=== PATIENT | male | born 1975 | race Caucasian/White ===

== ENCOUNTER 2018-04-26 12:49 | Emergency (ER) | payer OTHER ==
[~2018-04-26] VITALS: Ht 177.8 cm; Wt 129.3 kg
[~2018-04-26 12:49] MED LIST: ARIP30; AZIT250 PO; BACI500TO BOTHEYES; Ciprodex Otic7.5 ML RIGHTEAR; FLUPHENAZINE IM; HYDACE10B PO; MUPI2TC TOP; OLAN10; Prilosec20 MG PO; VALA500 PO
[2018-04-26 13:24] LABS: BASOPHILS ABSOLUTE AUTO 0.11 K/mm3 (0.00-0.23); BASOPHILS PERCENT AUTO 1 % (0-2); EOSINOPHILS ABSOLUTE AUTO 0.19 K/mm3 (0.00-0.68); EOSINOPHILS PERCENT AUTO 1 % (0-6); Hematocrit 48.7 % (37.0-53.0); Hemoglobin 16.5 g/dL (13.5-17.5); IMMATURE GRAN ABSOLUTE AUTO 0.06 K/mm3 (0.00-0.10); IMMATURE GRAN PERCENT AUTO 0 % (0-1); LYMPHOCYTES ABSOLUTE AUTO 2.05 K/mm3 (0.84-5.20); LYMPHOCYTES PERCENT AUTO 13 % (21-46); MONOCYTES ABSOLUTE AUTO 1.46 K/mm3 (0.16-1.47); MONOCYTES PERCENT AUTO 10 % (4-13); Mean Corpuscular HGB 30.1 pg (26.0-34.0); Mean Corpuscular HGB Conc 33.9 g/dL (31.5-36.5); Mean Corpuscular Volume 89 fL (80-100); Mean Platelet Volume 10.8 fL (9.1-12.4); NEUTROPHILS ABSOLUTE AUTO 11.51 K/mm3 (1.96-9.15); NEUTROPHILS PERCENT AUTO 75 % (41-73); Platelet Count 271 K/mm3 (150-400); RDW Coefficient Variation 12.4 % (11.7-14.2); RDW Standard Deviation 40.8 fL (35.1-46.3); Red Blood Cell Count 5.49 M/mm3 (4.30-5.90); White Blood Cell Count 15.38 K/mm3 (4.00-11.30)
[2018-04-26 13:25] LABS: Source, Urine Clean Catch
[2018-04-26 13:30] LABS: Appearance, Urine Clear (Clear); Bilirubin, Urine Neg (Neg); Blood, Urine 4+ (Neg); Color, Urine Yellow (P-Yellow); Glucose Qualitative, Urine Neg (Neg); Ketones, Urine 1+ (Neg); Leukocyte Esterase, Urine 1+ (Neg); Nitrite, Urine Neg (Neg); Protein, Urine 2+ (Neg); Urobilinogen, Urine NORM (Normal)
[2018-04-26 13:39] LABS: Squamous Epithelial Cells Few /hpf (Few)
[2018-04-26 13:41] LABS: Bacteria Not Seen /hpf; Mucus Light ({null, 0-Heavy}); Red Blood Cells, Urine 0-2 /hpf (0-2); Yeast/Fungi Urine Rare /hpf
[2018-04-26 13:45] LABS: U Amphetamine Screen Not Detected; U Barbituate Screen Not Detected; U Benzodiazapine Screen Not Detected; U Buprenorphine Screen Not Detected; U Cannabinoids Screen DETECTED; U Cocaine Screen Not Detected; U Methadone Screen Not Detected; U Methamphetamine Screen Not Detected; U Opiates Screen Not Detected; U Oxycodone Screen Not Detected; U Phencyclidine Screen Not Detected; U Propoxyphene Screen Not Detected
[2018-04-26 13:47] LABS: Alanine Aminotransfer (ALT/SGP 51 U/L (12-78); Albumin, Blood 4.1 g/dL (3.4-5.0); Alk Phos 80 U/L (50-136); Anion Gap 6 mmol/L (6-16); Aspartate Aminotrans (AST/SGOT 46 U/L (12-37); Bilirubin, Total 0.7 mg/dL (0.1-1.0); Blood Urea Nitrogen 9 mg/dL (8-24); CO2, Blood 25 mmol/L (21-32); Calcium, Blood 8.3 mg/dL (8.5-10.1); Chloride, Blood 106 mmol/L (98-108); Creatinine, Blood 1.12 mg/dL (0.60-1.20); Ethanol (Alcohol), Blood, Med <3 mg/dL; Glomerular Filtration Rate >60 (60-); Glucose, Blood 87 mg/dL (70-99); Potassium, Blood 4.2 mmol/L (3.5-5.5); Salicylate 10.3 mg/dL (2.8-20.0); Sodium, Blood 137 mmol/L (136-145); Total Protein, Blood 8.1 g/dL (6.4-8.2)
[2018-04-26 14:01] LABS: Acetaminophen, Random <2.0 ug/mL (10.0-30.0)
[2018-04-26] MEDS ORDERED: THIO25 PO (14:29)
[2018-04-26] MEDS ORDERED: Benztropine Mesy1 MG (14:29)
[2018-04-26] MEDS ORDERED: INVEGA SUS117 MG/0.7 (14:30)
== END 2018-04-26 16:40 | disposition left against medical advice (07) ==
LOC: ER 12:49
PROVIDERS: Physician Assistant
DX: F20.9 Schizophrenia, unspecified (principal); R44.0 Auditory hallucinations; Z91.19 Patient's noncompliance with other medical treatment and regimen; Z88.8 Allergy status to other drugs, medicaments and biological substances; Z79.899 Other long term (current) drug therapy; F17.200 Nicotine dependence, unspecified, uncomplicated
CPT/HCPCS: 36415; 80053; 81001; 84443; 85025; 87086; 99284; G0480

== ENCOUNTER 2018-10-09 12:39 | Emergency (ER) | payer OTHER ==
[~2018-10-09] VITALS: Ht 180.3 cm; Wt 117.9 kg
[~2018-10-09 12:39] MED LIST changes: +Benztropine Mesy1 MG; +INVEGA SUS117 MG/0.7; +THIO25 PO
[2018-10-09 13:25] LABS: BASOPHILS ABSOLUTE AUTO 0.08 K/mm3 (0.00-0.23); BASOPHILS PERCENT AUTO 1 % (0-2); EOSINOPHILS ABSOLUTE AUTO 0.11 K/mm3 (0.00-0.68); EOSINOPHILS PERCENT AUTO 1 % (0-6); Hematocrit 48.2 % (37.0-53.0); Hemoglobin 15.8 g/dL (13.5-17.5); IMMATURE GRAN ABSOLUTE AUTO 0.03 K/mm3 (0.00-0.10); IMMATURE GRAN PERCENT AUTO 0 % (0-1); LYMPHOCYTES PERCENT AUTO 10 % (21-46); MONOCYTES PERCENT AUTO 7 % (4-13); Mean Corpuscular HGB 30.1 pg (26.0-34.0); Mean Corpuscular HGB Conc 32.8 g/dL (31.5-36.5); Mean Corpuscular Volume 92 fL (80-100); Mean Platelet Volume 11.2 fL (9.1-12.4); NEUTROPHILS PERCENT AUTO 82 % (41-73); Platelet Count 216 K/mm3 (150-400); RDW Coefficient Variation 13.4 % (11.7-14.2); RDW Standard Deviation 46.3 fL (35.1-46.3); Red Blood Cell Count 5.25 M/mm3 (4.30-5.90); White Blood Cell Count 16.72 K/mm3 (4.00-11.30)
[2018-10-09 13:43] LABS: Alanine Aminotransfer (ALT/SGP 26 U/L (12-78); Albumin, Blood 3.8 g/dL (3.4-5.0); Alk Phos 87 U/L (50-136); Anion Gap 7 mmol/L (6-16); Aspartate Aminotrans (AST/SGOT 24 U/L (12-37); Bilirubin, Total 0.6 mg/dL (0.1-1.0); Blood Urea Nitrogen 11 mg/dL (8-24); CO2, Blood 21 mmol/L (21-32); Calcium, Blood 8.6 mg/dL (8.5-10.1); Chloride, Blood 112 mmol/L (98-108); Creatinine, Blood 0.79 mg/dL (0.60-1.20); Ethanol (Alcohol), Blood, Med 7 mg/dL; Globulin, Blood 3.9 g/dL (2.2-4.0); Glomerular Filtration Rate >60 (60-); Glucose, Blood 106 mg/dL (70-99); Potassium, Blood 3.4 mmol/L (3.5-5.5); Salicylate 20.2 mg/dL (2.8-20.0); Sodium, Blood 140 mmol/L (136-145); Total Protein, Blood 7.7 g/dL (6.4-8.2)
[2018-10-09 13:53] LABS: Acetaminophen, Random <2.0 ug/mL (10.0-30.0)
== END 2018-10-09 14:12 | disposition left against medical advice (07) ==
LOC: ER 12:39
PROVIDERS: Physician Assistant
DX: F22 Delusional disorders (principal)
CPT/HCPCS: 36415; 80053; 84443; 85025; 99281; G0480

== ENCOUNTER 2018-11-30 12:09 | Emergency (ER) | payer OTHER ==
[~2018-11-30] VITALS: Ht 180.3 cm; Wt 90.7 kg
== END 2018-11-30 13:46 | disposition left against medical advice (07) ==
LOC: ER 12:09
DX: Z53.21 Procedure and treatment not carried out due to patient leaving prior to being seen by health care provider (principal)

== ENCOUNTER 2018-12-04 04:28 | Emergency (ER) | payer OTHER ==
[~2018-12-04] VITALS: Ht 180.3 cm; Wt 113.4 kg
[2018-12-04] MEDS ORDERED: [UNRECOGNIZED DRUG - OTHER] PO (04:52)
[2018-12-04] MEDS ORDERED: RISPERDAL IM (04:53)
== END 2018-12-04 08:01 | disposition home or self-care (01) ==
LOC: ER 04:28
DX: F20.9 Schizophrenia, unspecified (principal); F17.210 Nicotine dependence, cigarettes, uncomplicated
CPT/HCPCS: 99284

== ENCOUNTER 2019-01-24 16:56 | Emergency (ER) | payer OTHER ==
[~2019-01-24] VITALS: Ht 180.3 cm; Wt 117.9 kg
[~2019-01-24 16:56] MED LIST changes: +RISPERDAL IM; +[UNRECOGNIZED DRUG - OTHER] PO
[2019-01-24 18:43] LABS: BASOPHILS ABSOLUTE AUTO 0.08 K/mm3 (0.00-0.23); BASOPHILS PERCENT AUTO 1 % (0-2); EOSINOPHILS PERCENT AUTO 2 % (0-6); Hematocrit 47.7 % (37.0-53.0); Hemoglobin 15.7 g/dL (13.5-17.5); IMMATURE GRAN ABSOLUTE AUTO 0.03 K/mm3 (0.00-0.10); IMMATURE GRAN PERCENT AUTO 0 % (0-1); LYMPHOCYTES ABSOLUTE AUTO 1.53 K/mm3 (0.84-5.20); LYMPHOCYTES PERCENT AUTO 13 % (21-46); MONOCYTES ABSOLUTE AUTO 0.72 K/mm3 (0.16-1.47); MONOCYTES PERCENT AUTO 6 % (4-13); Mean Corpuscular HGB 30.1 pg (26.0-34.0); Mean Corpuscular HGB Conc 32.9 g/dL (31.5-36.5); Mean Corpuscular Volume 91 fL (80-100); Mean Platelet Volume 11.3 fL (9.1-12.4); NEUTROPHILS ABSOLUTE AUTO 9.08 K/mm3 (1.96-9.15); NEUTROPHILS PERCENT AUTO 78 % (41-73); Platelet Count 241 K/mm3 (150-400); RDW Coefficient Variation 12.4 % (11.7-14.2); RDW Standard Deviation 42.3 fL (35.1-46.3); Red Blood Cell Count 5.22 M/mm3 (4.30-5.90); White Blood Cell Count 11.64 K/mm3 (4.00-11.30)
[2019-01-24 19:06] LABS: Alanine Aminotransfer (ALT/SGP 40 U/L (12-78); Albumin, Blood 3.6 g/dL (3.4-5.0); Alk Phos 91 U/L (50-136); Anion Gap 3 mmol/L (6-16); Aspartate Aminotrans (AST/SGOT 26 U/L (12-37); Bilirubin, Total 0.3 mg/dL (0.1-1.0); Blood Urea Nitrogen 9 mg/dL (8-24); Bun/Creatinine Ratio 10.2 (12.0-20.0); CO2, Blood 27 mmol/L (21-32); Calcium, Blood 8.7 mg/dL (8.5-10.1); Chloride, Blood 107 mmol/L (98-108); Creatinine, Blood 0.88 mg/dL (0.60-1.20); Globulin, Blood 3.5 g/dL (2.2-4.0); Glomerular Filtration Rate >60 (60-); Glucose, Blood 122 mg/dL (70-99); Potassium, Blood 3.9 mmol/L (3.5-5.5); Sodium, Blood 137 mmol/L (136-145); Total Protein, Blood 7.1 g/dL (6.4-8.2)
[2019-01-24 19:09] LABS: Source, Urine Clean Catch
[2019-01-24] MEDS ORDERED: Risperdal50 MG/2 ML IM (19:10)
[2019-01-24] MEDS ORDERED: LORA1 PO (19:11)
[2019-01-24 19:13] LABS: Appearance, Urine Clear (Clear); Bilirubin, Urine Neg (Neg); Blood, Urine Neg (Neg); Color, Urine Amber (P-Yellow); Glucose Qualitative, Urine Neg (Neg); Ketones, Urine 1+ (Neg); Leukocyte Esterase, Urine 1+ (Neg); Nitrite, Urine Neg (Neg); Protein, Urine 1+ (Neg); Specific Gravity, Urine 1.025 (1.003-1.022); Urobilinogen, Urine NORM (Normal)
[2019-01-24 19:19] LABS: Bacteria Few /hpf; Calcium Oxalate Crystals Few /hpf; Mucus Light (0-Heavy); Red Blood Cells, Urine 0-2 /hpf (0-2); Squamous Epithelial Cells Rare /hpf (Few)
[2019-01-24] MEDS ORDERED: Vibramycin100 MG PO (20:38)
== END 2019-01-24 20:51 | disposition home or self-care (01) ==
LOC: ER 16:56
PROVIDERS: Physician Assistant
DX: N45.1 Epididymitis (principal); F17.210 Nicotine dependence, cigarettes, uncomplicated; Z79.899 Other long term (current) drug therapy
CPT/HCPCS: 36415; 76870; 80053; 81001; 85025; 87086; 99284-25

== ENCOUNTER 2019-06-10 14:33 | Emergency (ER) | payer OTHER ==
[~2019-06-10] VITALS: Ht 180.3 cm; Wt 124.7 kg
[~2019-06-10 14:33] MED LIST changes: +LORA1 PO; +Risperdal50 MG/2 ML IM; +Vibramycin100 MG PO
== END 2019-06-10 16:15 | disposition home or self-care (01) ==
LOC: ER 14:33
DX: F20.0 Paranoid schizophrenia (principal); K21.9 Gastro-esophageal reflux disease without esophagitis; F17.210 Nicotine dependence, cigarettes, uncomplicated
CPT/HCPCS: 96372; 99284; J1200; J1630; J2060

== ENCOUNTER 2019-06-17 20:41 | Emergency (ER) | payer OTHER ==
[~2019-06-17] VITALS: Ht 180.3 cm; Wt 102.1 kg
== END 2019-06-17 23:15 | disposition home or self-care (01) ==
LOC: ER 20:41
DX: F15.10 Other stimulant abuse, uncomplicated (principal); R45.1 Restlessness and agitation
CPT/HCPCS: 99284

== ENCOUNTER 2019-07-13 07:48 | Emergency (ER) | payer OTHER ==
[~2019-07-13] VITALS: Ht 180.3 cm; Wt 90.7 kg
== END 2019-07-13 08:36 | disposition home or self-care (01) ==
LOC: ER 07:48
DX: F29 Unspecified psychosis not due to a substance or known physiological condition (principal); K21.9 Gastro-esophageal reflux disease without esophagitis; E66.9 Obesity, unspecified; Z91.14 Patient's other noncompliance with medication regimen; Z79.899 Other long term (current) drug therapy; Z68.27 Body mass index [BMI] 27.0-27.9, adult
CPT/HCPCS: 99284

== ENCOUNTER 2019-07-21 23:47 | Emergency (ER) | payer OTHER ==
[~2019-07-21] VITALS: Ht 180.3 cm; Wt 115.7 kg
[2019-07-22] MEDS ORDERED: BUSPIRONE (00:01)
== END 2019-07-22 01:40 | disposition home or self-care (01) ==
LOC: ER 23:47
DX: M54.5 Low back pain (principal); F20.9 Schizophrenia, unspecified; F17.210 Nicotine dependence, cigarettes, uncomplicated
CPT/HCPCS: 96372; 99283; J1885; J7512

== ENCOUNTER 2019-10-15 17:44 | Emergency (ER) | payer OTHER ==
[~2019-10-15 17:44] MED LIST changes: +BUSPIRONE; +Keflex500 MG PO
== END 2019-10-15 19:11 | disposition left against medical advice (07) ==
LOC: ER 17:44
DX: Z53.21 Procedure and treatment not carried out due to patient leaving prior to being seen by health care provider (principal)

== ENCOUNTER 2020-01-10 13:40 | Inpatient (IN) | payer OTHER ==
[~2020-01-10] VITALS: Ht 185.4 cm; Wt 111.9 kg
[2020-01-10 14:34] LABS: BASOPHILS ABSOLUTE AUTO 0.08 K/mm3 (0.00-0.23); BASOPHILS PERCENT AUTO 1 % (0-2); EOSINOPHILS ABSOLUTE AUTO 0.31 K/mm3 (0.00-0.68); EOSINOPHILS PERCENT AUTO 4 % (0-6); Hemoglobin 16.3 g/dL (13.5-17.5); IMMATURE GRAN ABSOLUTE AUTO 0.01 K/mm3 (0.00-0.10); IMMATURE GRAN PERCENT AUTO 0 % (0-1); LYMPHOCYTES ABSOLUTE AUTO 1.72 K/mm3 (0.84-5.20); LYMPHOCYTES PERCENT AUTO 22 % (21-46); MONOCYTES PERCENT AUTO 6 % (4-13); Mean Corpuscular HGB Conc 32.6 g/dL (31.5-36.5); Mean Corpuscular Volume 92 fL (80-100); Mean Platelet Volume 11.5 fL (9.1-12.4); NEUTROPHILS ABSOLUTE AUTO 5.39 K/mm3 (1.96-9.15); NEUTROPHILS PERCENT AUTO 67 % (41-73); Platelet Count 224 K/mm3 (150-400); RDW Coefficient Variation 12.5 % (11.7-14.2); RDW Standard Deviation 41.8 fL (35.1-46.3); Red Blood Cell Count 5.44 M/mm3 (4.30-5.90); White Blood Cell Count 8.01 K/mm3 (4.00-11.30)
[2020-01-10 14:48] LABS: Source, Urine Catheter
[2020-01-10 14:50] LABS: Alanine Aminotransfer (ALT/SGP 39 U/L (12-78); Albumin, Blood 3.3 g/dL (3.4-5.0); Alk Phos 70 U/L (50-136); Anion Gap 5 mmol/L (6-16); Aspartate Aminotrans (AST/SGOT 26 U/L (12-37); Bilirubin, Total 0.3 mg/dL (0.1-1.0); Blood Urea Nitrogen 8 mg/dL (8-24); Bun/Creatinine Ratio 9.5 (12.0-20.0); CO2, Blood 26 mmol/L (21-32); Calcium, Blood 8.5 mg/dL (8.5-10.1); Chloride, Blood 109 mmol/L (98-108); Creatinine, Blood 0.84 mg/dL (0.60-1.20); Ethanol (Alcohol), Blood, Med <3 mg/dL; Globulin, Blood 3.3 g/dL (2.2-4.0); Glomerular Filtration Rate >60 (60-); Glucose, Blood 126 mg/dL (70-99); Salicylate 5.1 mg/dL (2.8-20.0); Sodium, Blood 140 mmol/L (136-145); Total Protein, Blood 6.6 g/dL (6.4-8.2)
[2020-01-10 14:53] LABS: Bilirubin, Urine Neg (Neg); Blood, Urine Neg (Neg); Glucose Qualitative, Urine Neg (Neg); Ketones, Urine Neg (Neg); Leukocyte Esterase, Urine Neg (Neg); Nitrite, Urine Neg (Neg); Protein, Urine Neg (Neg); Urobilinogen, Urine NORM (Normal)
[2020-01-10 14:54] LABS: Acetaminophen, Random <2.0 ug/mL (10.0-30.0)
[2020-01-10 15:00] LABS: Appearance, Urine Clear (Clear); Color, Urine Yellow (P-Yellow)
[2020-01-10 15:04] LABS: U Amphetamine Screen Not Detected; U Barbituate Screen Not Detected; U Benzodiazapine Screen Not Detected; U Buprenorphine Screen Not Detected; U Cannabinoids Screen DETECTED; U Cocaine Screen Not Detected; U Methadone Screen Not Detected; U Methamphetamine Screen Not Detected; U Opiates Screen Not Detected; U Oxycodone Screen Not Detected; U Phencyclidine Screen Not Detected; U Propoxyphene Screen Not Detected
--- NOTE | 2020-01-10 17:55 | NUR ---
PT ARRIVED TO THE UNIT VIA STRETCHER FROM [facility], PT IS HERE DUE TO KLONOPIN OVERDOSE AND SI. PT IS ON 2MD HOLD. PT IS MINIMALLY RESPONSIVE, WOULD ONLY RESPONDS TO PRESSURE TOUCH. HAS WOKEN UP ONCE TO USE THE BATHROOM PT WAS ASSISTED BACK IN BED PT WAS NOT STEADY TO STAND OFFERED URINAL, PT VOIDED 60MLS OF URINE. VITALS HRR SINUS 80'S, BP SYSTOLIC 120, SATS ABOVE 95% ON RA, AFEBRILE. PT REMAINED ASLEEP LR BOLUS X1 BAG IS NOW RUNNING. 1:1 SITTER AT BEDSIDE. BED ALARM ON. WILL MONITOR PT
--- NOTE | 2020-01-10 19:05 | NUR ---
PT REMAINED MINIMALLY RESPONSIVE, PT UNABLE TO PARTICIPATE WITH SI ASSESSMENT PT GARBLES WHEN RESPONDING. OPENS BOTH EYES BUT FALLS ASLEEP PRETTY QUICK. PATIENT SITTER IN THE ROOM. LR RUNNING AT 200MLS/HR. NO OTHER ISSUES AT THIS TIME, REPORT GIVEN TO ONCOMING SHIFT.
--- NOTE | 2020-01-10 19:43 | NUR ---
SAFETY PLAN NOTIFIED CHRIS ENG OF NEED FOR SAFETY PLAN, LEFT VOICEMAIL MESSAGE WITH DETAILS.
[2020-01-10] MEDS ORDERED: [UNRECOGNIZED DRUG - OTHER] PO (22:32)
[2020-01-10] MEDS ORDERED: RISPERDAL50 MG/2 ML IM (22:33)
--- NOTE | 2020-01-11 03:35 | NUR ---
UPDATE PT WAKES ONLY TO ANSWER QUESTION THEN IMMEDIATLEY GOES BACK TO SLEEP. HE IS ORIENTED TO PERSON AND PLACE. DOES NOT KNOW OWN LIMITATIONS AND HAS REPEATEDLY STOOD UP WITH A VERY UNSTEADY GAIT TO USE THE URINAL. HE IS A 1 PERSON ASSIST. PT IS COOPERATIVE AT TIMES BUT NOT OTHERS. VSS, BED LOW AND LOCKED, CALL LIGHT WITHIN REACH, NO OTHER ISSUES NOTED THIS SHIFT.
[2020-01-11 04:22] LABS: Alanine Aminotransfer (ALT/SGP 32 U/L (12-78); Albumin, Blood 2.8 g/dL (3.4-5.0); Alk Phos 63 U/L (50-136); Anion Gap 3 mmol/L (6-16); Aspartate Aminotrans (AST/SGOT 25 U/L (12-37); Bilirubin, Total 0.4 mg/dL (0.1-1.0); Blood Urea Nitrogen 6 mg/dL (8-24); Bun/Creatinine Ratio 8.9 (12.0-20.0); CO2, Blood 27 mmol/L (21-32); Calcium, Blood 8.4 mg/dL (8.5-10.1); Chloride, Blood 113 mmol/L (98-108); Creatinine, Blood 0.68 mg/dL (0.60-1.20); Globulin, Blood 2.9 g/dL (2.2-4.0); Glomerular Filtration Rate >60 (60-); Glucose, Blood 77 mg/dL (70-99); Potassium, Blood 3.9 mmol/L (3.5-5.5); Sodium, Blood 143 mmol/L (136-145); Total Protein, Blood 5.7 g/dL (6.4-8.2)
--- NOTE | 2020-01-11 05:44 | NUR ---
SUMMARY PT CONTINUES TO GET OUT OF BED TO USE URINAL AND DOES NOT USE CALL LIGHT. BED ALARM IS ON AND HE IS A SBA BECAUSE OF HIS UNSTEADY GATE. OTHERWISE HE SLEEPS AND IS DIFFICULT TO AROUSE AND FALLS ASLEEP DURING CONVERSATION. CALL LIGHT IS IN REACH, BED IN LOW POSITION.
--- NOTE | 2020-01-11 07:30 | NUR ---
ASSUMED PATIENT CARE. PATIENT RESTING COMFORTABLY IN BED, CALL LIGHT WITHIN REACH. NO SIGNS OF ACUTE DISTRESS, WCTM.
--- NOTE | 2020-01-11 12:11 | NUR ---
REPORT GIVEN TO ANGEL LUIS SILVA ON MEDICAL.
[2020-01-11 12:27] LABS: U Amphetamine Screen Not Detected; U Barbituate Screen Not Detected; U Benzodiazapine Screen Not Detected; U Buprenorphine Screen Not Detected; U Cannabinoids Screen DETECTED; U Cocaine Screen Not Detected; U Methadone Screen Not Detected; U Methamphetamine Screen Not Detected; U Opiates Screen Not Detected; U Oxycodone Screen Not Detected; U Phencyclidine Screen Not Detected; U Propoxyphene Screen Not Detected
--- NOTE | 2020-01-11 12:30 | NUR ---
TRANSFERRED TO MEDICAL FLOOR PT TRANSFERRED FROM PCU TO MEDICAL SCU VIA WC. PT AxOx1-2. INTERMITTENT INCOHERENT MUMBLING. FOLLOWS COMMANDS. VITALS REVIEWED. SI REASSESSED. VITALS REVIEWED. RIPPED OUT IV UPON TRANSFER. WILL CALL DR JIMENEZ ABOUT DC ORDER. PT DENIES PAIN. REQUESTING TO NAP NOW. MOTHER, JULIA CALLED FOR UPDATE APPROX 1330. ALL QUESTIONS ANSWERED AT THIS TIME. WILL CALL BACK TOMORROW TO FOLLOW UP.
--- NOTE | 2020-01-11 13:23 | NUR ---
Safety Plan interview attempted. Pt has slurred speech that is difficult to understand. He did state he took OD of pills. He would stroke his head with both hands, no eye contact. Pt appeared unable to engae in plan. Will attempt tomorrow. Sushma Reed M.Ed., [facility]
--- NOTE | 2020-01-11 17:41 | NUR ---
SHIFT SUMMARY PT AxOx3. MOSTLY COOPERATIVE WITH CARE TODAY. INTERMITTENT CONFUSION/IRRITABILITY. CAMERA ON IN ROOM. MOD SI PRECAUTIONS IN PLACE. DENIES ANY SI TODAY. TOOK NAP AFTER ARRIVING ON UNIT. WOKE UP WITH IMPROVED ORIENTATION AND STEADY GAIT. INDEPENDENT IN ROOM AT THIS TIME. DOES NOT USE CALL LIGHT APPROPRIATELY. GETS UP AND STANDS AT DOOR UNTIL SOMEONE CHECKS ON HIM. DR GREENEUFF IN TO SEE PT THIS AFTERNOON, ADDED KLONOPIN BID. DENIES PAIN. VITALS REVIWED. PT CURRENTLY RESTING IN BED AFTER EATING DINNER.
--- NOTE | 2020-01-11 19:40 | NUR ---
ASSUMED CARE. MICHAELA IS ALERT, BUT TENDS TO FALL BACK TO SLEEP BETWEEN QUESTIONS. DENIES ANY PAIN OR DISCOMFORT. DENIES ANY SUICIDAL THOUGHTS OR INTENSTIONS. KNOWS WHERE HE IS AT AND WHY BUT WAS OFF ON THE DAY. STATES HE JUST TIRED. DENIES ANY NEEDS OR COMPLAINTS. CALL LIGHT IN REACH. WILL CONTINUE TO MONITOR.
--- NOTE | 2020-01-12 05:26 | NUR ---
SHIFT SUMMARY: MICHAELA WOKE UP FOR SHORT PERIOD OF TIME TONIGHT, BUT HAS SLEPT. SUICIDE ASSESSMENT HAS BEEN NEGATIVE, HE HAS DENIED SUICIDAL THOUGHTS AND INTENSIONS. HE WAKES UP AND THEN GOES BACK TO SLEEP. VS HAVE BEEN STABLE. NO ACUTE CHANGES TO NOTE THIS SHIFT.
--- NOTE | 2020-01-12 12:17 | NUR ---
Safety interview attempted at 1130a today. Pt did not respond to questions. He did say hello, then covered his head with a sheet. RN informed of need for plan in case pt. would be discharged today. PCI report from [facility] report for involuntary hold not yet availbale. Checked with Crisis Unit and nothing faxed.
[2020-01-12] MEDS ORDERED: CLON.5 PO (12:33)
--- NOTE | 2020-01-12 12:48 | NUR ---
DISCHARGE INSTRUCTIONS DISCUSED WITH PATIENT. ALL QUESTIONS ANSWERED. RX FOR KLONOPIN CALLED INTO THE [facility]. NO IV TO REMOVE. PATIENT NEEDS TO COMPLETE A SAFETY PLAN BEFORE DISCHARGING HOME.
--- NOTE | 2020-01-12 13:18 | NUR ---
PATIENT DISCHARGED HOME AT 1319. TRANSPORT TOOK PATIENT OUT VIA WHEELCHAIR.
== END 2020-01-12 13:19 | disposition home or self-care (01) | DRG 917 ==
LOC: ER 13:40 → PCU 13:41 → MEDS 01-11 12:21
PROVIDERS: Emergency Medicine; Family Medicine; ADMIT Hospitalist
DX: T42.4X2A Poisoning by benzodiazepines, intentional self-harm, initial encounter (principal); G92 Toxic encephalopathy; K51.90 Ulcerative colitis, unspecified, without complications; F20.9 Schizophrenia, unspecified; E66.9 Obesity, unspecified; K21.9 Gastro-esophageal reflux disease without esophagitis; B19.20 Unspecified viral hepatitis C without hepatic coma; F17.210 Nicotine dependence, cigarettes, uncomplicated; F12.129 Cannabis abuse with intoxication, unspecified; Z68.32 Body mass index [BMI] 32.0-32.9, adult
CPT/HCPCS: 36415; 51702; 80053; 81003; 85025; 93005; 93010; 94762; 96360-59; 96361; 96372; 99285-25; G0378; G0480; J1650; J7030; J7120

== ENCOUNTER 2020-01-20 00:09 | Emergency (ER) | payer OTHER ==
[~2020-01-20] VITALS: Ht 180.3 cm; Wt 113.4 kg
[~2020-01-20 00:09] MED LIST changes: +CLON.5 PO; +RISPERDAL50 MG/2 ML IM
== END 2020-01-20 01:17 | disposition home or self-care (01) ==
LOC: ER 00:09
DX: F41.9 Anxiety disorder, unspecified (principal); F17.210 Nicotine dependence, cigarettes, uncomplicated; Z76.0 Encounter for issue of repeat prescription; Z79.899 Other long term (current) drug therapy; F20.9 Schizophrenia, unspecified
CPT/HCPCS: 99283

== ENCOUNTER 2020-02-11 04:36 | Emergency (ER) | payer OTHER ==
[~2020-02-11] VITALS: Ht 180.3 cm; Wt 113.4 kg
[2020-02-11] MEDS ORDERED: CEPH500 PO (04:57)
== END 2020-02-11 05:07 | disposition home or self-care (01) ==
LOC: ER 04:36
DX: T63.301A Toxic effect of unspecified spider venom, accidental (unintentional), initial encounter (principal); L53.0 Toxic erythema; R20.8 Other disturbances of skin sensation; F20.0 Paranoid schizophrenia; F17.210 Nicotine dependence, cigarettes, uncomplicated; Z79.899 Other long term (current) drug therapy
CPT/HCPCS: 99282; A9270-GY

== ENCOUNTER 2020-02-15 16:33 | Emergency (ER) | payer OTHER ==
[~2020-02-15] VITALS: Ht 180.3 cm; Wt 90.7 kg
[~2020-02-15 16:33] MED LIST changes: +CEPH500 PO
== END 2020-02-15 17:42 | disposition home or self-care (01) ==
LOC: ER 16:33
DX: F20.9 Schizophrenia, unspecified (principal); K21.9 Gastro-esophageal reflux disease without esophagitis; F17.210 Nicotine dependence, cigarettes, uncomplicated; Z79.899 Other long term (current) drug therapy
CPT/HCPCS: 36415; 96372; 99284

== ENCOUNTER 2020-02-16 19:25 | Emergency (ER) | payer OTHER ==
[~2020-02-16] VITALS: Ht 180.3 cm; Wt 114.3 kg
== END 2020-02-16 22:55 | disposition home or self-care (01) ==
LOC: ER 19:25
DX: F20.9 Schizophrenia, unspecified (principal); F17.210 Nicotine dependence, cigarettes, uncomplicated; Z76.0 Encounter for issue of repeat prescription; Z86.59 Personal history of other mental and behavioral disorders; Z79.899 Other long term (current) drug therapy
CPT/HCPCS: 99284

== ENCOUNTER 2020-06-12 10:22 | Emergency (ER) | payer OTHER ==
[~2020-06-12] VITALS: Ht 180.3 cm; Wt 111.1 kg
[2020-06-12] MEDS ORDERED: CEPH500 PO (10:50)
== END 2020-06-12 10:59 | disposition home or self-care (01) ==
LOC: ER 10:22
DX: L03.115 Cellulitis of right lower limb (principal); F17.210 Nicotine dependence, cigarettes, uncomplicated
CPT/HCPCS: 99283

== ENCOUNTER 2020-06-13 16:49 | Emergency (ER) | payer OTHER ==
[~2020-06-13] VITALS: Ht 180.3 cm; Wt 111.1 kg
== END 2020-06-13 18:00 | disposition home or self-care (01) ==
LOC: ER 16:49
DX: L03.116 Cellulitis of left lower limb (principal)
CPT/HCPCS: 99282

== ENCOUNTER 2020-10-29 16:11 | Emergency (ER) | payer OTHER | END 2020-10-29 17:33 | disposition home or self-care (01) | LOC: ER 16:11 | DX: S01.312A Laceration without foreign body of left ear, initial encounter (principal); F17.210 Nicotine dependence, cigarettes, uncomplicated; W45.8XXA Other foreign body or object entering through skin, initial encounter ==

== ENCOUNTER 2021-03-03 10:02 | Emergency (ER) | payer OTHER ==
[~2021-03-03] VITALS: Ht 180.3 cm; Wt 104.3 kg
== END 2021-03-03 10:54 | disposition left against medical advice (07) ==
LOC: ER 10:02
DX: L02.414 Cutaneous abscess of left upper limb (principal); L02.413 Cutaneous abscess of right upper limb; Z53.29 Procedure and treatment not carried out because of patient's decision for other reasons; K21.9 Gastro-esophageal reflux disease without esophagitis; F17.210 Nicotine dependence, cigarettes, uncomplicated; Z79.899 Other long term (current) drug therapy
CPT/HCPCS: 99283

== ENCOUNTER → 2021-03-05 | Outpatient (CLI) | payer OTHER | LOC: LAB SHORT 18:45 → LAB 18:45 | DX: L02.413 Cutaneous abscess of right upper limb (principal) | CPT/HCPCS: 87070; 87075; 87205 ==

== ENCOUNTER 2021-07-12 01:42 | Emergency (ER) | payer OTHER ==
[~2021-07-12] VITALS: Ht 180.3 cm; Wt 99.8 kg
[2021-07-12] MEDS ORDERED: Prozac20 MG PO (01:57)
[2021-07-12] MEDS ORDERED: CLON.5 (01:57)
[2021-07-12 02:51] LABS: BASOPHILS ABSOLUTE AUTO 0.06 K/mm3 (0.00-0.23); BASOPHILS PERCENT AUTO 1 % (0-2); EOSINOPHILS ABSOLUTE AUTO 0.32 K/mm3 (0.00-0.68); EOSINOPHILS PERCENT AUTO 3 % (0-6); Hematocrit 38.3 % (37.0-53.0); IMMATURE GRAN ABSOLUTE AUTO 0.03 K/mm3 (0.00-0.10); IMMATURE GRAN PERCENT AUTO 0 % (0-1); LYMPHOCYTES ABSOLUTE AUTO 1.24 K/mm3 (0.84-5.20); LYMPHOCYTES PERCENT AUTO 13 % (21-46); MONOCYTES ABSOLUTE AUTO 0.79 K/mm3 (0.16-1.47); MONOCYTES PERCENT AUTO 8 % (4-13); Mean Corpuscular HGB 29.5 pg (26.0-34.0); Mean Corpuscular HGB Conc 33.9 g/dL (31.5-36.5); Mean Corpuscular Volume 87 fL (80-100); Mean Platelet Volume 11.3 fL (9.1-12.4); NEUTROPHILS ABSOLUTE AUTO 7.26 K/mm3 (1.96-9.15); NEUTROPHILS PERCENT AUTO 75 % (41-73); Platelet Count 207 K/mm3 (150-400); RDW Coefficient Variation 13.2 % (11.7-14.2); RDW Standard Deviation 41.9 fL (35.1-46.3); Red Blood Cell Count 4.41 M/mm3 (4.30-5.90)
[2021-07-12 03:09] LABS: Alanine Aminotransfer (ALT/SGP 70 U/L (12-78); Albumin, Blood 3.1 g/dL (3.4-5.0); Alk Phos 78 U/L (50-136); Anion Gap 8 mmol/L (6-16); Aspartate Aminotrans (AST/SGOT 108 U/L (12-37); Bilirubin, Total 0.8 mg/dL (0.1-1.0); Blood Urea Nitrogen 17 mg/dL (8-24); CO2, Blood 26 mmol/L (21-32); CPK Creatine Kinase 826 U/L (39-308); Calcium, Blood 8.3 mg/dL (8.5-10.1); Chloride, Blood 105 mmol/L (98-108); Creatinine, Blood 0.81 mg/dL (0.60-1.20); Globulin, Blood 3.1 g/dL (2.2-4.0); Glomerular Filtration Rate >60 (60-); Glucose, Blood 132 mg/dL (70-99); International Normalized Ratio 1.09; Prothrombin Time Results 11.4 Sec (9.7-11.5); Sodium, Blood 139 mmol/L (136-145); Total Protein, Blood 6.2 g/dL (6.4-8.2)
[2021-07-12 03:27] LABS: Creatine Kinase MB 6.5 ng/mL (0.0-3.6); Creatine Kinase MB Index 0.8 (0.0-4.0)
[2021-07-12 03:43] LABS: Source, Urine Clean Catch
[2021-07-12 03:46] LABS: Bilirubin, Urine Neg (Neg); Blood, Urine 3+ (Neg); Glucose Qualitative, Urine Neg (Neg); Ketones, Urine Neg (Neg); Leukocyte Esterase, Urine Neg (Neg); Nitrite, Urine Neg (Neg); Protein, Urine 2+ (Neg); Specific Gravity, Urine 1.025 (1.003-1.022); Urobilinogen, Urine 3+ (Normal)
[2021-07-12 03:53] LABS: Appearance, Urine Clear (Clear); Color, Urine Yellow (P-Yellow)
[2021-07-12 03:58] LABS: U Amphetamine Screen DETECTED; U Barbituate Screen Not Detected; U Benzodiazapine Screen Not Detected; U Methamphetamine Screen DETECTED
[2021-07-12 03:59] LABS: U Buprenorphine Screen Not Detected; U Cannabinoids Screen DETECTED; U Cocaine Screen Not Detected; U Methadone Screen Not Detected; U Opiates Screen Not Detected; U Oxycodone Screen Not Detected; U Phencyclidine Screen Not Detected; U Propoxyphene Screen Not Detected
[2021-07-12 04:12] LABS: Bacteria Not Seen /hpf; Calcium Oxalate Crystals Rare /hpf; Mucus Light (0-Heavy); Red Blood Cells, Urine Rare /hpf (0-2); Squamous Epithelial Cells Few /hpf (Few); White Blood Cells, Urine 0-2 /hpf (0-5)
== END 2021-07-12 04:15 | disposition left against medical advice (07) ==
LOC: ER 01:42
PROVIDERS: Emergency Medicine
DX: S91.052A Open bite, left ankle, initial encounter (principal); S91.051A Open bite, right ankle, initial encounter; R74.8 Abnormal levels of other serum enzymes; F15.90 Other stimulant use, unspecified, uncomplicated; F17.210 Nicotine dependence, cigarettes, uncomplicated; W56.41XA Bitten by shark, initial encounter
CPT/HCPCS: 36415; 80053; 81001; 82550; 82553; 85025; 85384; 85610; 85730; A9270; J7120

== ENCOUNTER 2021-07-29 23:07 | Emergency (ER) | payer OTHER ==
[~2021-07-29] VITALS: Ht 180.3 cm; Wt 97.5 kg
[~2021-07-29 23:07] MED LIST changes: +CLON.5; +Prozac20 MG PO
== END 2021-07-30 00:37 | disposition home or self-care (01) ==
LOC: ER 23:07
DX: M25.532 Pain in left wrist (principal); K21.9 Gastro-esophageal reflux disease without esophagitis; F17.210 Nicotine dependence, cigarettes, uncomplicated
CPT/HCPCS: 29125; 73110; 99283-25

== ENCOUNTER 2021-08-10 03:46 | Emergency (ER) | payer OTHER ==
[~2021-08-10] VITALS: Ht 182.9 cm; Wt 99.8 kg
== END 2021-08-10 06:27 | disposition left against medical advice (07) ==
LOC: ER 03:46
DX: F20.9 Schizophrenia, unspecified (principal); S90.829A Blister (nonthermal), unspecified foot, initial encounter; K21.9 Gastro-esophageal reflux disease without esophagitis; F17.210 Nicotine dependence, cigarettes, uncomplicated; Z79.899 Other long term (current) drug therapy; Z91.14 Patient's other noncompliance with medication regimen; X58.XXXA Exposure to other specified factors, initial encounter; Y92.9 Unspecified place or not applicable
CPT/HCPCS: 99284; Q3014

== ENCOUNTER → 2021-08-17 | Outpatient (CLI) | payer OTHER | END | disposition home or self-care (01) | LOC: LAB 13:00 → LAB SHORT 13:00 | DX: L02.412 Cutaneous abscess of left axilla (principal) | CPT/HCPCS: 87070; 87075; 87205 ==

== ENCOUNTER → 2021-10-18 | Outpatient (CLI) | payer OTHER ==
[~2021-10-18] MED LIST changes: +Cleocin HCl150 MG PO
== END | disposition home or self-care (01) ==
LOC: LAB 16:45 → LAB SHORT 16:45
DX: L02.91 Cutaneous abscess, unspecified (principal)
CPT/HCPCS: 87070; 87077; 87147; 87186; 87205

== ENCOUNTER 2021-12-06 19:21 | Emergency (ER) | payer OTHER ==
[~2021-12-06] VITALS: Ht 180.3 cm; Wt 99.8 kg
[~2021-12-06 19:21] MED LIST changes: -Cleocin HCl150 MG PO
== END 2021-12-06 20:15 | disposition home or self-care (01) ==
LOC: ER 19:21
DX: S30.863A Insect bite (nonvenomous) of scrotum and testes, initial encounter (principal); F17.210 Nicotine dependence, cigarettes, uncomplicated; W57.XXXA Bitten or stung by nonvenomous insect and other nonvenomous arthropods, initial encounter; Z79.899 Other long term (current) drug therapy
CPT/HCPCS: 99282; A9270

== ENCOUNTER 2022-04-23 17:09 | Emergency (ER) | payer OTHER ==
[~2022-04-23] VITALS: Ht 180.3 cm; Wt 86.2 kg
[~2022-04-23 17:09] MED LIST changes: +Cleocin HCl150 MG PO
== END 2022-04-23 17:36 | disposition home or self-care (01) ==
LOC: ER 17:09
DX: F41.9 Anxiety disorder, unspecified (principal); F41.0 Panic disorder [episodic paroxysmal anxiety]; F17.210 Nicotine dependence, cigarettes, uncomplicated; Z79.899 Other long term (current) drug therapy
CPT/HCPCS: 99283

== ENCOUNTER 2022-05-07 07:04 | Emergency (ER) | payer OTHER ==
[~2022-05-07] VITALS: Ht 180.3 cm; Wt 83.9 kg
[2022-05-07] MEDS ORDERED: TERB250 PO (08:00)
== END 2022-05-07 08:12 | disposition home or self-care (01) ==
LOC: ER 07:04
DX: B35.1 Tinea unguium (principal); L84 Corns and callosities; F17.210 Nicotine dependence, cigarettes, uncomplicated; Z79.899 Other long term (current) drug therapy
CPT/HCPCS: 99283

== ENCOUNTER 2023-03-03 19:29 | Emergency (ER) | payer OTHER ==
[~2023-03-03] VITALS: Ht 180.3 cm; Wt 117.9 kg
[~2023-03-03 19:29] MED LIST changes: +TERB250 PO
[2023-03-03 19:48] VITALS: BP 151/90
== END 2023-03-03 19:52 | disposition home or self-care (01) ==
LOC: ER 19:29
DX: T16.1XXA Foreign body in right ear, initial encounter (principal); W44.8XXA Other foreign body entering into or through a natural orifice, initial encounter; F17.210 Nicotine dependence, cigarettes, uncomplicated; Z79.899 Other long term (current) drug therapy
CPT/HCPCS: 99282-25

== ENCOUNTER → 2023-05-20 | Outpatient (CLI) | payer OTHER ==
[2023-05-20 11:39] LABS: Source, Urine Clean Catch
[2023-05-20 12:09] LABS: Bacteria Not Seen /hpf; Red Blood Cells, Urine Not Seen /hpf (0-2); Squamous Epithelial Cells Rare /hpf (Few); White Blood Cells, Urine Not Seen /hpf (0-5)
== END ==
LOC: LAB SHORT 11:37 → LAB 11:37
PROVIDERS: Chiropractor
DX: R80.9 Proteinuria, unspecified (principal)
CPT/HCPCS: 81015

== ENCOUNTER 2023-06-01 19:58 | Emergency (ER) | payer OTHER ==
[~2023-06-01] VITALS: Ht 180.3 cm; Wt 117.9 kg
[2023-06-01 20:29] VITALS: BP 150/89
[2023-06-01] MEDS ORDERED: AMOCLA875 PO (21:13)
[2023-06-01] MEDS ORDERED: Amoxicillin/Clavulanate K 875 MG Tab PO ONE (21:15)
== END 2023-06-01 21:22 | disposition home or self-care (01) ==
LOC: ER 19:58
DX: H60.91 Unspecified otitis externa, right ear (principal); T16.1XXA Foreign body in right ear, initial encounter; W44.8XXA Other foreign body entering into or through a natural orifice, initial encounter; H66.91 Otitis media, unspecified, right ear; F20.0 Paranoid schizophrenia; F17.210 Nicotine dependence, cigarettes, uncomplicated; Z88.8 Allergy status to other drugs, medicaments and biological substances; Z79.899 Other long term (current) drug therapy
CPT/HCPCS: 99282; A9270

== ENCOUNTER 2023-08-15 21:07 | Emergency (ER) | payer OTHER ==
[~2023-08-15] VITALS: Ht 180.3 cm; Wt 113.4 kg
[~2023-08-15 21:07] MED LIST changes: +AMOCLA875 PO
[2023-08-15 21:18] VITALS: BP 131/93
== END 2023-08-15 21:22 | disposition home or self-care (01) ==
LOC: ER 21:07
DX: S00.06XA Insect bite (nonvenomous) of scalp, initial encounter (principal); F17.210 Nicotine dependence, cigarettes, uncomplicated; W57.XXXA Bitten or stung by nonvenomous insect and other nonvenomous arthropods, initial encounter; Z88.8 Allergy status to other drugs, medicaments and biological substances; Z79.899 Other long term (current) drug therapy
CPT/HCPCS: 99282

== ENCOUNTER 2023-12-09 20:27 | Emergency (ER) | payer OTHER ==
[~2023-12-09] VITALS: Ht 177.8 cm; Wt 136.1 kg
[2023-12-09 20:49] VITALS: BP 158/98
== END 2023-12-09 20:58 | disposition home or self-care (01) ==
LOC: ER 20:27
DX: Z77.21 Contact with and (suspected) exposure to potentially hazardous body fluids (principal); F17.210 Nicotine dependence, cigarettes, uncomplicated; Z79.899 Other long term (current) drug therapy; Z88.8 Allergy status to other drugs, medicaments and biological substances
CPT/HCPCS: 99282

== ENCOUNTER 2024-11-03 22:19 | Emergency (ER) | payer OTHER ==
[~2024-11-03] VITALS: Ht 180.3 cm; Wt 136.1 kg
[2024-11-04 01:45] VITALS: BP 156/84
== END 2024-11-04 01:50 | disposition home or self-care (01) ==
LOC: ER 22:19
DX: Z71.9 Counseling, unspecified (principal); K21.9 Gastro-esophageal reflux disease without esophagitis; F17.210 Nicotine dependence, cigarettes, uncomplicated; Z79.899 Other long term (current) drug therapy; Z88.8 Allergy status to other drugs, medicaments and biological substances
CPT/HCPCS: 99282

== ENCOUNTER 2024-12-13 22:32 | Emergency (ER) | payer OTHER ==
[~2024-12-13] VITALS: Ht 177.8 cm; Wt 136.1 kg
[2024-12-13 22:46] VITALS: BP 177/87
[2024-12-13] MEDS ORDERED: Ondansetron HCl 2 MG / ML 2ML Vial IV PRN (22:50)
[2024-12-13 23:13] LABS: BASOPHILS ABSOLUTE AUTO 0.09 K/mm3 (0.00-0.23); BASOPHILS PERCENT AUTO 1 % (0-2); EOSINOPHILS ABSOLUTE AUTO 0.40 K/mm3 (0.00-0.68); EOSINOPHILS PERCENT AUTO 5 % (0-6); Hematocrit 43.6 % (37.0-53.0); Hemoglobin 14.6 g/dL (13.5-17.5); IMMATURE GRAN ABSOLUTE AUTO 0.03 K/mm3 (0.00-0.10); IMMATURE GRAN PERCENT AUTO 0 % (0-1); LYMPHOCYTES ABSOLUTE AUTO 2.09 K/mm3 (0.84-5.20); LYMPHOCYTES PERCENT AUTO 24 % (21-46); MONOCYTES ABSOLUTE AUTO 0.84 K/mm3 (0.16-1.47); MONOCYTES PERCENT AUTO 9 % (4-13); Mean Corpuscular HGB Conc 33.5 g/dL (31.5-36.5); Mean Corpuscular Volume 89 fL (80-100); NEUTROPHILS ABSOLUTE AUTO 5.45 K/mm3 (1.96-9.15); NEUTROPHILS PERCENT AUTO 61 % (41-73); NRBC ABSOLUTE 0.00 K/mm3 (0.00-0.02); NRBC Auto 0.0 /100 WBC (0.0-0.2); Platelet Count 202 K/mm3 (150-400); RDW Coefficient Variation 12.7 % (11.7-14.2); RDW Standard Deviation 41.9 fL (35.1-46.3)
[2024-12-13 23:31] LABS: Alanine Aminotransfer (ALT/SGP 49.0 U/L (12-78); Albumin, Blood 3.2 g/dL (3.4-5.0); Albumin/Globulin Ratio 1.0 (0.8-1.8); Anion Gap 4.0 mmol/L (3-11); Aspartate Aminotrans (AST/SGOT 33.0 U/L (12-37); Bilirubin, Total 0.2 mg/dL (0.1-1.0); Blood Urea Nitrogen 13.0 mg/dL (8-24); CO2, Blood 32.0 mmol/L (21-32); Calcium, Blood 8.2 mg/dL (8.5-10.1); Chloride, Blood 108.0 mmol/L (98-108); Creatinine, Blood 0.99 mg/dL (0.60-1.20); Globulin, Blood 3.3 g/dL (2.2-4.0); Glucose, Blood 116.0 mg/dL (70-99); Potassium, Blood 3.9 mmol/L (3.5-5.5); Sodium, Blood 140.0 mmol/L (136-145); Total Protein, Blood 6.5 g/dL (6.4-8.2)
[2024-12-13 23:59] LABS: Source, Urine Clean Catch
[2024-12-14 00:19] LABS: Bilirubin, Urine Neg (Neg); Glucose Qualitative, Urine Neg (Neg); Ketones, Urine Neg (Neg); Leukocyte Esterase, Urine Neg (Neg); Protein, Urine 1+ (Neg); Specific Gravity, Urine 1.025 (1.003-1.022); Urobilinogen, Urine NORM (Normal)
[2024-12-14 00:20] LABS: Color, Urine Yellow (P-Yellow)
[2024-12-14 00:21] LABS: Red Blood Cells, Urine Not Seen /hpf (0-2); White Blood Cells, Urine 0-2 /hpf (0-5)
== END 2024-12-14 01:39 | disposition home or self-care (01) ==
LOC: ER 22:32
PROVIDERS: Emergency Medicine
DX: R10.9 Unspecified abdominal pain (principal); R14.0 Abdominal distension (gaseous); F20.0 Paranoid schizophrenia; F43.10 Post-traumatic stress disorder, unspecified; F17.210 Nicotine dependence, cigarettes, uncomplicated; Z68.41 Body mass index [BMI] 40.0-44.9, adult; Z79.899 Other long term (current) drug therapy
CPT/HCPCS: 80053; 81001; 83690; 85025; 99284